=== PATIENT | male | born 1950 | race African-American/Black ===

== ENCOUNTER 2025-02-17 10:49 | Inpatient (IN) | payer MEDICARE ==
[~2025-02-17] VITALS: Ht 177.8 cm; Wt 99.8 kg
[~2025-02-17 10:49] MED LIST: ALBU2SYR23 MT; ATOR-2 PO; FLUT12AE7 INH; FURO-152 MT; FURO20TA4 PO; GABA-529 PO; GLIP5TAB22 MT; LEVO750T68 MT; LOSA25TA26 PO; METF-416 PO; METO-293 MT
[2025-02-17] MEDS: IPRATROPIUM BROMIDE (0.02%) 0.5MG/2.5ML NEB HHN SCH (11:40)
[2025-02-17] MEDS: ALBUTEROL (0.083%) 2.5MG/3ML NEB HHN SCH (11:41)
[2025-02-17] MEDS: METHYLPREDNISOLONE SOD SUCC 125MG/2ML (ACT-O-VIAL) IV ONE (11:58)
[2025-02-17 12:10] LABS: BASOPHILS % 0.9 % (0.0-2.0); EOSINOPHILS % 0.7 % (0.0-5.0); HEMATOCRIT. 40.7 % (42.0-52.0); HEMOGLOBIN. 13.5 g/dL (14.0-18.0); LYMPHOCYTES % 16.5 % (20.0-50.0); MEAN PLATELET VOLUME 7.4 fl (7.4-10.4); MONOCYTES % 5.1 % (2.0-8.0); NEUTROPHILS % 76.8 % (40.0-76.0); PLATELET 244 x1000/uL (130-400); RED BLOOD CELL COUNT 4.62 mill/uL (4.7-6.1); RED CELL DISTRIBUTION WIDTH 14.9 % (11.6-14.6)
[2025-02-17 12:28] LABS: CREATININE 1.0 mg/dL (0.6-1.3); UREA NITROGEN BLOOD 12 mg/dL (9-23)
[2025-02-17 12:29] LABS: TROPONIN I HIGH SENSITIVITY 6 ng/L (3.0-53)
[2025-02-17] MEDS ORDERED: ENOXAPARIN 40MG/0.4ML SYR SUBCUT SCH (15:15)
[2025-02-17] MEDS ORDERED: TROPICAMIDE 1% OPHTH DROPS 15ML EACHEYE ONE (15:15)
[2025-02-17] MEDS ORDERED: ACETAMINOPHEN 325MG TABLET PO PRN ×2 (15:15)
[2025-02-17] MEDS ORDERED: DEXTROSE 50% WATER 50ML SYRINGE IV PRN (15:15)
[2025-02-17 16:00] VITALS: BP 179/92; PULSE 100; RESP 18; TEMP 36.6; O2SAT 100
[2025-02-17] MEDS: DOCUSATE SODIUM 250MG CAPSULE PO SCH (16:00)
[2025-02-17] MEDS: ASPIRIN 81MG TABLET PO SCH (16:00)
[2025-02-17] MEDS: FUROSEMIDE 40MG TABLET PO SCH (16:00)
[2025-02-17] MEDS: LOSARTAN 25 MG TABLET PO SCH (16:00)
[2025-02-17] MEDS: BLOOD SUGAR DIAGNOSTIC STRIP TEST SCH (16:51)
[2025-02-17] MEDS: INSULIN LISPRO 100 UNITS/ML SUBCUT SCH (16:58)
[2025-02-17] MEDS: METHYLPREDNISOLONE SOD SUCC 40MG/ML (ACT-O-VIAL) IV SCH (17:02)
[2025-02-17] MEDS: ENOXAPARIN 30MG/0.3ML SYR SUBCUT SCH (17:05)
[2025-02-17] MEDS ORDERED: LORAZEPAM 0.5MG TABLET PO PRN (18:45)
[2025-02-17 19:34] VITALS: BP 179/92; PULSE 100; RESP 19; TEMP 36.5848
[2025-02-17 20:00] VITALS: BP 143/68; PULSE 108; PULSE 88; RESP 18; RESP 19; TEMP 36.7; O2SAT 94; O2SAT 96; O2SAT 99
[2025-02-17] MEDS: IPRATROPIUM/ALBUTEROL 0.5-3(2.5)MG/3ML NEB HHN SCH (20:00)
[2025-02-17] MEDS ORDERED: ZOLPIDEM TARTRATE 5MG TABLET PO PRN (21:00)
[2025-02-17] MEDS: LEVOFLOXACIN 750MG PREMIX 150 ML IV SCH (22:06)
[2025-02-17] MEDS: GABAPENTIN 100MG CAPSULE PO SCH (22:07)
[2025-02-17] MEDS: ATORVASTATIN CALCIUM 40MG TABLET PO SCH (22:07)
[2025-02-17] MEDS: CARVEDILOL 12.5MG TABLET PO SCH (22:07)
[2025-02-18] VITALS (12 sets, daily range): BP systolic 161–194; BP diastolic 70–100; PULSE 79–119; RESP 16–20; TEMP 36.1–36.6; O2SAT 92–99
[2025-02-18 07:11] LABS: HEMATOCRIT. 39.0 % (42.0-52.0); HEMOGLOBIN. 12.9 g/dL (14.0-18.0); MEAN PLATELET VOLUME 7.6 fl (7.4-10.4); PLATELET 245 x1000/uL (130-400); RED BLOOD CELL COUNT 4.46 mill/uL (4.7-6.1); RED CELL DISTRIBUTION WIDTH 14.9 % (11.6-14.6)
[2025-02-18 07:22] LABS: CREATININE 1.2 mg/dL (0.6-1.3)
[2025-02-18 07:23] LABS: UREA NITROGEN BLOOD 17 mg/dL (9-23)
[2025-02-18] MEDS: GUAIFENESIN 200MG/10ML SUGAR FREE UDC PO PRN (13:06)
[2025-02-18] MEDS ORDERED: DILTIAZEM HCL 5MG/ML 5ML VIAL IV PRN (13:30)
[2025-02-18] MEDS ORDERED: DILTIAZEM HCL 5MG/ML 5ML VIAL IV NR (13:30)
[2025-02-18] MEDS: HYDRALAZINE 20MG/ML VIAL IV NR (14:00)
[2025-02-18] MEDS: HYDRALAZINE HCL 50MG TABLET PO SCH (21:33)
[2025-02-18 23:27] LABS: LYMPHOCYTES % MANUAL 8.0 % (20.0-50.0); MONOCYTES % MANUAL 3.0 % (2.0-8.0); NEUTROPHILS % MANUAL 89.0 % (45.0-75.0); PLATELET ESTIMATE NORMAL
[2025-02-19] VITALS: BP 129/102; PULSE 80; RESP 18; TEMP 36.3; O2SAT 99
[2025-02-19 04:00] VITALS: BP 144/69; PULSE 79; RESP 18; TEMP 36.4; O2SAT 98
[2025-02-19 04:31] VITALS: PULSE 88; RESP 18; O2SAT 95
[2025-02-19 07:17] LABS: CREATININE 1.1 mg/dL (0.6-1.3); UREA NITROGEN BLOOD 24 mg/dL (9-23)
[2025-02-19 07:22] LABS: BASOPHILS % 0.1 % (0.0-2.0); EOSINOPHILS % 0.0 % (0.0-5.0); HEMATOCRIT. 39.7 % (42.0-52.0); HEMOGLOBIN. 13.1 g/dL (14.0-18.0); LYMPHOCYTES % 13.1 % (20.0-50.0); MEAN PLATELET VOLUME 7.6 fl (7.4-10.4); MONOCYTES % 6.2 % (2.0-8.0); NEUTROPHILS % 80.6 % (40.0-76.0); PLATELET 239 x1000/uL (130-400); RED BLOOD CELL COUNT 4.49 mill/uL (4.7-6.1); RED CELL DISTRIBUTION WIDTH 15.2 % (11.6-14.6)
[2025-02-19 08:00] VITALS: BP 173/85; PULSE 108; RESP 18; TEMP 36.4; O2SAT 98
[2025-02-19] MEDS ORDERED: HYDR50TA40 MT (08:48)
[2025-02-19] MEDS ORDERED: P20 MT (08:48)
[2025-02-19] MEDS ORDERED: ALBU18HF2 IH (08:48)
[2025-02-19] MEDS ORDERED: LOSA100T33 MT (08:48)
[2025-02-19 10:45] VITALS: PULSE 108; RESP 20; O2SAT 96
[2025-02-19 12:00] VITALS: BP 133/79; PULSE 82; RESP 17; TEMP 36.5; O2SAT 96
== END 2025-02-19 15:30 | disposition home or self-care (01) | DRG 190 ==
LOC: ER 10:49 → 5WST 13:06 → EDBEDREQ 13:14 → EDBEDREQTM 13:14 → ENRESERV 14:01 → 5WST 18:36
PROVIDERS: ADMIT Internal Medicine; ATTEND Internal Medicine
DX: J44.1 Chronic obstructive pulmonary disease with (acute) exacerbation (principal); J18.9 Pneumonia, unspecified organism; I11.0 Hypertensive heart disease with heart failure; J44.0 Chronic obstructive pulmonary disease with (acute) lower respiratory infection; E11.9 Type 2 diabetes mellitus without complications; F17.200 Nicotine dependence, unspecified, uncomplicated; F41.9 Anxiety disorder, unspecified; Z79.84 Long term (current) use of oral hypoglycemic drugs; Z79.899 Other long term (current) drug therapy; Z88.5 Allergy status to narcotic agent; Z88.8 Allergy status to other drugs, medicaments and biological substances
CPT/HCPCS: 36415; 71045; 80048; 82962; 84145; 84484; 85025; 93005; 94070; 94640; 94664; 96374; 98960; 99285; J0360; J1650; J1815; J1956; J2919; J3490